=== PATIENT | female | born 2000 | race Caucasian/White ===

== ENCOUNTER 2018-01-16 18:22 | Emergency (ER) | payer OTHER ==
[2018-01-16] MEDS: ACETAMINOPHEN 325 MG TABLET. PO (18:45)
== END 2018-01-16 19:30 | disposition home or self-care (01) ==
LOC: ER 18:22
DX: O26.892 Other specified pregnancy related conditions, second trimester (principal); S93.601A Unspecified sprain of right foot, initial encounter; X58.XXXA Exposure to other specified factors, initial encounter; Y93.89 Activity, other specified; Y99.8 Other external cause status; Y92.89 Other specified places as the place of occurrence of the external cause
CPT/HCPCS: 73630; 99284-25